=== PATIENT | female | born 1950 | race Caucasian/White ===

== ENCOUNTER 2017-10-14 11:48 | Emergency (ER) | payer OTHER, MEDICAID ==
[~2017-10-14] VITALS: Ht 162.6 cm; Wt 56.7 kg
[2017-10-14 11:54] VITALS: BP 155/75
[2017-10-14] MEDS ORDERED: KETOROLAC TROMETH 30 MG/ML 1ML VIAL IM ONE (12:30)
== END 2017-10-14 12:55 | disposition home or self-care (01) ==
LOC: ER 11:48
DX: S83.92XA Sprain of unspecified site of left knee, initial encounter (principal); S83.91XA Sprain of unspecified site of right knee, initial encounter; I50.9 Heart failure, unspecified; J44.9 Chronic obstructive pulmonary disease, unspecified; I25.2 Old myocardial infarction; Z88.0 Allergy status to penicillin; Z88.6 Allergy status to analgesic agent; X50.1XXA Overexertion from prolonged static or awkward postures, initial encounter; Y93.89 Activity, other specified; Y92.89 Other specified places as the place of occurrence of the external cause; Y99.8 Other external cause status
CPT/HCPCS: 73562; 96372; 99284; J1885

== ENCOUNTER 2022-07-14 17:14 | Emergency (ER) | payer MEDICAID, OTHER ==
[~2022-07-14] VITALS: Ht 165.1 cm; Wt 50.0 kg
[2022-07-14] MEDS ORDERED: ACETAMINOPHEN 650 mg PER 20.3 mL UD PO ONE (18:45)
[2022-07-14 20:30] VITALS: BP 118/70
[2022-07-14] MEDS ORDERED: HYDROcodone-ACET 5/325MG TAB PO ONE (20:45)
[2022-07-14] MEDS ORDERED: ONDANSETRON ODT 4 MG TAB PO ONE (20:45)
[2022-07-14] MEDS ORDERED: TETANUS-DIPTH-ACEL PERTUSSIS 0.5ML SYR Tdap IM ONE (21:00)
== END 2022-07-14 21:33 | disposition home or self-care (01) ==
LOC: ER 17:14 → EDBD 17:14 → ER 21:33
DX: S01.01XA Laceration without foreign body of scalp, initial encounter (principal); J44.9 Chronic obstructive pulmonary disease, unspecified; I50.9 Heart failure, unspecified; I25.2 Old myocardial infarction; M54.50 Low back pain, unspecified; M54.2 Cervicalgia; F17.210 Nicotine dependence, cigarettes, uncomplicated; Z88.8 Allergy status to other drugs, medicaments and biological substances; Y04.2XXA Assault by strike against or bumped into by another person, initial encounter; Y93.89 Activity, other specified; Y92.89 Other specified places as the place of occurrence of the external cause; Y99.8 Other external cause status
CPT/HCPCS: 12001; 70450; 70486; 72125; 72128; 72131; 99284; Q0162

== ENCOUNTER → 2022-07-22 | Emergency (ER) | payer OTHER ==
[~2022-07-22] VITALS: Ht 172.7 cm; Wt 60.0 kg
[2022-07-22 10:34] VITALS: BP 101/67
== END | disposition home or self-care (01) ==
LOC: EDUNIT# 10:20 → EDBD 10:21 → ER 10:21
DX: G89.4 Chronic pain syndrome (principal); I50.9 Heart failure, unspecified; I25.2 Old myocardial infarction; J44.9 Chronic obstructive pulmonary disease, unspecified; F17.210 Nicotine dependence, cigarettes, uncomplicated; Z88.0 Allergy status to penicillin; Z88.8 Allergy status to other drugs, medicaments and biological substances

== ENCOUNTER 2022-08-08 12:56 | Emergency (ER) | payer OTHER ==
[~2022-08-08] VITALS: Ht 162.6 cm; Wt 40.5 kg
[2022-08-08 13:28] LABS: Basophils # (auto) 0 10 ^3/uL (0-0.2); Basophils % (auto) 0.6 % (0.0-2.0); Eosinophils # (auto) 0.4 10 ^3/uL (0-0.8); Eosinophils % (auto) 9.5 % (0.0-7.0); Hematocrit 39.9 % (36.0-46.0); Hemoglobin 13.1 g/dL (12.2-16.2); Lymphocytes # (auto) 1.3 10 ^3/uL (0.4-5.4); Lymphocytes % (auto) 27.4 % (10.0-50.0); Mean Corpuscular Hemoglobin 30.5 pg (28.0-32.0); Mean Corpuscular Hgb Conc. 32.9 g/dL (32.0-36.0); Mean Corpuscular Volume 92.6 fL (80.0-100.0); Monocytes # (auto) 0.5 10 ^3/uL (0-1.3); Monocytes % (auto) 10.4 % (0.0-12.0); Neutrophils # (auto) 2.4 10 ^3/uL (1.6-8.6); Neutrophils % (auto) 52.1 % (37.0-80.0); Red Blood Cells 4.31 10^6/uL (4.0-5.20); Red Cell Distribution Width 14.2 % (11.8-14.3); White Blood Cell 4.7 10^3/uL (4.4-10.8)
[2022-08-08 13:43] VITALS: BP 100/54
[2022-08-08 13:50] LABS: Albumin 3.6 g/dL (3.4-5.0); BUN/Creatinine Ratio 34.9; Bilirubin, Total 0.3 mg/dL (0.2-1.0); Calcium 9.4 mg/dL (8.5-10.1); Magnesium 2.6 mg/dL (1.6-2.6); Potassium 4.9 mmol/L (3.5-5.1); Total Protein 5.8 g/dL (6.4-8.2)
[2022-08-08] MEDS ORDERED: IPRATROPIUM BROM 0.5 MG/2.5ML INH SOL NEB ONE (15:00)
[2022-08-08] MEDS ORDERED: DexAMETHasone 4 MG TAB PO ONE (15:00)
[2022-08-08] MEDS ORDERED: ALBUTEROL SULF 2.5 MG/0.5ML(0.5%) NEB SOLN NEB ONE (15:00)
== END 2022-08-08 15:54 | disposition left against medical advice (07) ==
LOC: ER 12:56
DX: J44.1 Chronic obstructive pulmonary disease with (acute) exacerbation (principal); G89.29 Other chronic pain; M54.9 Dorsalgia, unspecified; F17.210 Nicotine dependence, cigarettes, uncomplicated; I25.2 Old myocardial infarction; I50.9 Heart failure, unspecified
CPT/HCPCS: 36415; 71045; 80053; 83735; 83880; 84484; 85025; 93005; 94640; 99285; J7644

== ENCOUNTER 2023-01-02 09:57 | Emergency (ER) | payer OTHER ==
[~2023-01-02] VITALS: Ht 154.9 cm; Wt 90.0 kg
[2023-01-02 10:07] VITALS: BP 153/77
[2023-01-02 11:32] LABS: Basophils # (auto) 0.1 10 ^3/uL (0-0.2); Basophils % (auto) 1.2 % (0.0-2.0); Eosinophils # (auto) 0.4 10 ^3/uL (0-0.8); Eosinophils % (auto) 4.6 % (0.0-7.0); Hematocrit 44.3 % (36.0-46.0); Hemoglobin 14.9 g/dL (12.2-16.2); Lymphocytes # (auto) 1.6 10 ^3/uL (0.4-5.4); Lymphocytes % (auto) 19.4 % (10.0-50.0); Mean Corpuscular Hemoglobin 30.5 pg (28.0-32.0); Mean Corpuscular Hgb Conc. 33.6 g/dL (32.0-36.0); Mean Corpuscular Volume 90.9 fL (80.0-100.0); Monocytes # (auto) 0.7 10 ^3/uL (0-1.3); Monocytes % (auto) 8.8 % (0.0-12.0); Neutrophils # (auto) 5.6 10 ^3/uL (1.6-8.6); Nucleated Red Blood Cells % 0.1 %; Red Blood Cells 4.87 10^6/uL (4.0-5.20); Red Cell Distribution Width 13.9 % (11.8-14.3); White Blood Cell 8.4 10^3/uL (4.4-10.8)
[2023-01-02 11:59] LABS: Albumin 3.9 g/dL (3.4-5.0); Anion Gap 2 (5-15); Blood Alcohol < 3.0 mg/dL (0-5); Blood Urea Nitrogen 11 mg/dL (7-18); Calcium 9.1 mg/dL (8.5-10.1); Carbon Dioxide 28 mmol/L (21-32); Chloride 107 mmol/L (98-107); Glucose 102 mg/dL (74-106); Magnesium 2.6 mg/dL (1.6-2.6); Potassium 4.3 mmol/L (3.5-5.1); Sodium 137 mmol/L (136-145)
[2023-01-02 12:02] LABS: Alanine Aminotransferase 14 U/L (13-56); Alkaline Phosphatase 87 U/L (45-117); Aspartate Aminotransferase 12 U/L (15-37); BUN/Creatinine Ratio 19.6 (10.0-20.0); Bilirubin, Total 0.5 mg/dL (0.2-1.0); GFR African American 136 mL/min; GFR Non-African American 113 mL/min; Total Protein 6.9 g/dL (6.4-8.2)
[2023-01-02 13:34] LABS: Urine Bacteria NONE SEEN /hpf (None Seen); Urine Blood Negative /uL (Negative); Urine Specific Gravity 1.005 (1.001-1.035); Urine WBC 3 /hpf (0 - 5)
[2023-01-02 13:42] LABS: Alcohol, Urine < 3.0 mg/dL (0-10); Barbiturate Scree,Urine NEGATIVE (NEGATIVE); Benzodiazephine Screen, Urine NEGATIVE (NEGATIVE); Cannabinoid Screen, Urine POSITIVE (NEGATIVE); Cocaine Screen, Urine NEGATIVE (NEGATIVE)
[2023-01-02] MEDS ORDERED: LORazepam 0.5 MG TAB PO ONE (13:45)
[2023-01-02 13:51] LABS: Amphetamine Screen, Urine NEGATIVE (NEGATIVE); Opiate Scree,Urine NEGATIVE (NEGATIVE); Phencyclidine Screen, Urine NEGATIVE (NEGATIVE)
== END 2023-01-02 17:06 | disposition home or self-care (01) ==
LOC: EDBD 09:57 → ER 09:57
DX: F41.9 Anxiety disorder, unspecified (principal); R51.9 Headache, unspecified; R07.89 Other chest pain; I50.9 Heart failure, unspecified; I25.2 Old myocardial infarction; J44.9 Chronic obstructive pulmonary disease, unspecified; F17.210 Nicotine dependence, cigarettes, uncomplicated; Z76.0 Encounter for issue of repeat prescription; Z88.0 Allergy status to penicillin; Z88.8 Allergy status to other drugs, medicaments and biological substances
CPT/HCPCS: 36415; 70450; 71045; 80053; 80307; 80320; 81001; 82140; 83605; 83735; 83880; 83930; 84484; 85025; 87040

== ENCOUNTER 2023-01-14 12:43 | Emergency (ER) | payer OTHER ==
[~2023-01-14] VITALS: Ht 165.1 cm; Wt 37.0 kg
[2023-01-14 13:12] VITALS: BP 131/88
== END 2023-01-14 15:16 | disposition left against medical advice (07) ==
LOC: EDBD 12:43 → ER 12:43
DX: R10.84 Generalized abdominal pain (principal); Z53.21 Procedure and treatment not carried out due to patient leaving prior to being seen by health care provider

== ENCOUNTER 2023-03-26 00:12 | Emergency (ER) | payer OTHER ==
[~2023-03-26] VITALS: Ht 162.6 cm; Wt 36.8 kg
[2023-03-26 03:10] LABS: Salicylate 5.2 mg/dL (2.8-20.0)
[2023-03-26 03:12] LABS: Acetaminophen < 2.0 ug/mL (10-30)
[2023-03-26 03:23] LABS: Basophils # (auto) 0.1 10 ^3/uL (0-0.2); Basophils % (auto) 1.1 % (0.0-2.0); Eosinophils # (auto) 0.3 10 ^3/uL (0-0.8); Hemoglobin 15.1 g/dL (12.2-16.2); Lymphocytes # (auto) 1.5 10 ^3/uL (0.4-5.4); Lymphocytes % (auto) 17.5 % (10.0-50.0); Mean Corpuscular Hemoglobin 30.7 pg (28.0-32.0); Mean Corpuscular Hgb Conc. 33.4 g/dL (32.0-36.0); Mean Corpuscular Volume 91.9 fL (80.0-100.0); Monocytes # (auto) 0.5 10 ^3/uL (0-1.3); Monocytes % (auto) 5.9 % (0.0-12.0); Neutrophils # (auto) 6.4 10 ^3/uL (1.6-8.6); Neutrophils % (auto) 72.5 % (37.0-80.0); Red Cell Distribution Width 13.2 % (11.8-14.3); White Blood Cell 8.9 10^3/uL (4.4-10.8)
[2023-03-26 03:27] LABS: Albumin 3.8 g/dL (3.4-5.0); BUN/Creatinine Ratio 20.5 (10.0-20.0); Calcium 8.9 mg/dL (8.5-10.1); Potassium 3.7 mmol/L (3.5-5.1)
[2023-03-26 03:30] LABS: Bilirubin, Total 0.5 mg/dL (0.2-1.0); Total Protein 6.6 g/dL (6.4-8.2)
[2023-03-26] MEDS ORDERED: HALOPERIDOL LACTATE 5 MG/ML INJ VIAL IM ONE (07:00)
[2023-03-26 07:35] VITALS: BP 116/70
[2023-03-26 07:48] LABS: Urine Bacteria FEW /hpf (None Seen); Urine Blood TRACE /uL (Negative); Urine Mucus MODERATE (None Seen); Urine Specific Gravity 1.023 (1.001-1.035); Urine WBC 56 /hpf (0 - 5)
[2023-03-26 08:19] LABS: Alcohol, Urine < 3.0 mg/dL (0-10); Amphetamine Screen, Urine NEGATIVE (NEGATIVE); Barbiturate Scree,Urine NEGATIVE (NEGATIVE); Benzodiazephine Screen, Urine NEGATIVE (NEGATIVE); Cannabinoid Screen, Urine NEGATIVE (NEGATIVE); Cocaine Screen, Urine NEGATIVE (NEGATIVE); Opiate Scree,Urine NEGATIVE (NEGATIVE); Phencyclidine Screen, Urine NEGATIVE (NEGATIVE)
== END 2023-03-26 08:36 | disposition left against medical advice (07) ==
LOC: ER 00:12 → EDBD 00:12 → ER 08:36
DX: R51.9 Headache, unspecified (principal); M54.2 Cervicalgia; R10.9 Unspecified abdominal pain; R11.2 Nausea with vomiting, unspecified; Z53.21 Procedure and treatment not carried out due to patient leaving prior to being seen by health care provider
CPT/HCPCS: 36415; 70450; 71250; 72125; 74176; 80053; 80307; 80329; 81001; 84484; 85025; 93005; 99281; J1630

== ENCOUNTER 2024-10-05 04:28 | Inpatient (IN) | payer OTHER ==
[~2024-10-05] VITALS: Ht 162.6 cm; Wt 39.0 kg
[2024-10-05 04:56] VITALS: PULSE 87; RESP 12; O2SAT 96
[2024-10-05 05:57] LABS: Basophils # (auto) 0 10 ^3/uL (0-0.2); Basophils % (auto) 0.7 % (0.0-2.0); Eosinophils # (auto) 0.3 10 ^3/uL (0-0.8); Hematocrit 41.4 % (36.0-46.0); Hemoglobin 13.9 g/dL (12.2-16.2); Lymphocytes # (auto) 1.5 10 ^3/uL (0.4-5.4); Lymphocytes % (auto) 29.2 % (10.0-50.0); Mean Corpuscular Hemoglobin 32.1 pg (28.0-32.0); Mean Corpuscular Hgb Conc. 33.5 g/dL (32.0-36.0); Mean Corpuscular Volume 95.8 fL (80.0-100.0); Monocytes # (auto) 0.4 10 ^3/uL (0-1.3); Monocytes % (auto) 7.9 % (0.0-12.0); Neutrophils # (auto) 2.9 10 ^3/uL (1.6-8.6); Neutrophils % (auto) 57.2 % (37.0-80.0); Nucleated Red Blood Cells % 0.1 %; Platelet Count (auto) 202 10^3/uL (140-450); Red Blood Cells 4.32 10^6/uL (4.0-5.20); Red Cell Distribution Width 13.7 % (11.8-14.3)
[2024-10-05 06:13] LABS: Alanine Aminotransferase 12 U/L (7-40); Albumin 3.9 g/dL (3.2-4.8); Anion Gap 9 (5-15); Aspartate Aminotransferase 14 U/L (13-40); Carbon Dioxide 22 mmol/L (20-31); Glucose 85 mg/dL (74-106); Potassium 3.9 mmol/L (3.5-5.1); Sodium 143 mmol/L (136-145)
[2024-10-05 06:14] LABS: Bilirubin, Total 0.4 mg/dL (0.2-1.0)
[2024-10-05 06:16] LABS: Alkaline Phosphatase 128 U/L (46-116); Blood Urea Nitrogen 9 mg/dL (9-23); Chloride 112 mmol/L (98-107); Total Protein 5.6 g/dL (5.7-8.2)
--- NOTE | 2024-10-05 07:05 | ECG ---
[facility] Test Date: 2024-10-05 Test Time: 05:46:07 Pat Name: DELVIN FRAUSTO Department: ER Room: 0272T Gender: F Collect On Delivery Clerk: : 1950 Requested By: MICHI AYALA Order Number: [id number] Reading MD: Abbe Pablo Measurements Intervals [place] Rate: 83 P: 84 HI: 170 QRS: 74 QRSD: 84 T: 78 QT: 379 QTc: 446 Interpretive Statements Sinus rhythm ST elevation, consider inferior injury Electronically Signed On 10-13-2024 14:41:13 PST by Abbe Pablo Please click the below link to view image of tracing.
[2024-10-05 07:30] VITALS: PULSE 97; RESP 16; O2SAT 97
--- NOTE | 2024-10-05 07:36 | DVH ---
EXAM: CT Head Without Intravenous Contrast CLINICAL INDICATION: SYNCOPE TECHNIQUE: Axial computed tomography images of the head/brain without intravenous contrast. This CT exam was performed using one or more of the following dose reduction techniques: automated exposure control, adjustment of the mA and/or kV according to patient size, and/or use of iterative reconstru ction technique. RADIATION DOSE: CTDlvol= CTDIvol mGy, DLP= 859.45 mGy-cm COMPARISON: CT HEAD WITHOUT CONTRAST on DOS: 03/25/23, CT CERVICAL WITHOUT CONTRAST on DOS: 03/25/23, CT HEAD WITHOUT CONTRAST on DOS: 01/02/23, CERVICAL WITHOUT CONTRAST on DOS: 07/14/22, HEAD WITHOUT CONT RAST on DOS: 07/14/22 FINDINGS: BRAIN AND EXTRA-AXIAL SPACES: The cerebral and cerebellar sulci are prominent consistent with brain atrophy. Small vessel. No acute intracranial hemorrhage, midline shift or mass effect. BONES/JOINTS: Unremarkable. No acute fracture. SOFT TISSUES: Unremarkable. SINUSES: Unremarkable as visualized. No acute sinusitis. MASTOID AIR CELLS: Unremarkable as visualized. No mastoid effusion. OTHER FINDINGS: . . . IMPRESSION: 1. No acute intracranial hemorrhage, midline shift or mass effect. 2. Generalized brain atrophy. 3. If symptoms persist, further evaluation with MRI is recommended.
--- NOTE | 2024-10-05 07:52 | DVH ---
CHEST RADIOGRAPH Indication: SOB Technique: Single frontal view of the chest was obtained Comparison: XY CHEST PORTABLE on DOS: 01/02/23, CHEST PORTABLE on DOS: 08/08/22, CXRP on DOS: 08/08/22 IMPRESSION: Heart appears normal in size. The lungs appear clear without focal airspace opacity, effusion, or pn eumothorax
--- NOTE | 2024-10-05 08:02 | ED.PDOC ---
History of Present Illness HPI Comments 74 y/o F, with a with a Hx of CAD, CA, CHF, COPD, NC, and tobacco use, is BIBA for c/o shortness and breath and nausea, today, following recent syncopal episode w/fall injury, yesterday. Per EMS report, patient endorses on having an episode of palpitations, yesterday, evening, prior to then losing consciousness and suffering a fall w/o head or additional injuries. At time of assessment, patient comments on being compliant with her medications and reports no recent prior injuries, sick contact, travel, strenuous activities, stressors, or additional relevant or pertinent Hx. She denies having any chest pain, dizziness, headache or additional injuries, fever, chills, or other associated symptoms or modifiers at this time. Chief Complaint: General Weakness Time Seen by MD: 06:45 Primary Care Provider: NONE Reviewed Notes: Nurses Notes, Certified Orthotist Notes, Medications, Allergies Allergies: Coded Allergies: Barbiturates (Verified Allergy, Unknown, 10/14/17) Penicillins (Verified Allergy, Unknown, 01/02/23) Information Source: Patient, Emergency Med Personnel Mode of Arrival: EMS Severity: Moderate Timing: Days Duration: Since onset Prehospital treatment: 12 Lead EKG, Legal File Clerk Past Medical History PAST MEDICAL HISTORY: CAD, Cancer, CHF, COPD, NC Surgical History: Denies all surgeries FISCAL SERVICES DIRECTOR History: Denies all FISCAL SERVICES DIRECTOR Hx Family History Family History: Reviewed,noncontributory to illness Social History Smoker: Cigarettes Alcohol: Occasionally Drugs: Denies Drug Use Lives In: Home Respiratory: reports: shortness of breath Cardiovascular: reports: syncope Gastrointestinal: reports: nausea All Other Systems: Reviewed and Negative (negative unless otherwise stated above or in HPI) Physical Exam General Appearance: No Apparent Distress, Thin HEENT: Normal ENT Inspection, Pharynx Normal, TMs Normal Neck: Full Range of Motion, Non-Tender, Normal, Normal Inspection Respiratory: Chest Non-Tender, Lungs Clear, No Accessory Muscle Use, No Respir atory Distress, Normal Breath Sounds Cardiovascular: No Edema, No JVD, No Murmur, No Gallop, Normal Peripheral Pulses, Regular Rate/Rhythm Breast Exam: Deferred Gastrointestinal: No Organomegaly, Non Tender, No Pulsatile Mass, Normal Bowel Sounds, Soft Genitalia: Deferred Pelvic: Deferred Rectal: Deferred Extremities: No calf tenderness, Normal capillary refill, Normal inspection, Normal range of motion, Non-tender, No pedal edema Musculoskeletal : Apperance: Normal Neurologic: Alert, director of sustainable design II-XII nml as Tested, No Motor Deficits, Normal Affect, Normal Mood, No Sensory Deficits Cerebellar Function: Normal Reflexes: Normal Skin: Dry, Normal Color, Warm Lymphatic: No Adenopathy Was a procedure done? Was a procedure done?: No EKG EKG : Pulse Rate (adult): 83 [place]: Normal Cardiac Rhythm: NSR Block: None Hypertrophy: None ST: Normal Differential Dx Considerations may include: dehydration, electrolyte imbalance, arrhythmia, closed head injury, viral syndrome, COPD exacerbation, CHF exacerbation, gastritis, gastroenteritis, spoiled food X-Ray, Labs, Meds, VS Vital Signs Date Time Temp Pulse Resp B/P (MAP) Pulse Ox O2 Delivery O2 Flow Rate FiO2 10/05/24 09:00 93 17 112/58 (76) 96 10/05/24 09:00 81 10/05/24 09:00 90 10/05/24 08:02 83 10/05/24 07:30 97 16 97 Room Air* 0 21 10/05/24 07:30 96.8 97 16 108/62 (77) 97 96.8 10/05/24 07:00 75 14 108/62 (77) 96 10/05/24 05:46 83 10/05/24 04:56 97.5 87 12 108/78 (88) 96 97.5 10/05/24 04:56 87 12 96 Room Air* 0 21 10/05/24 04:32 97.9 96 16 117/77 (90) 97 Lab Test 10/05/24 10:24 10/05/24 08:25 10/05/24 07:25 10/05/24 05:29 Range/Units Troponin I High Sensitivity 3 L 4 4 </=34 ng/L White Blood Count 5.0 4.4-10.8 10^3/uL Red Blood Count 4.32 4.0-5.20 10^6/uL Hemoglobin 13.9 12.2-16.2 g/dL Hematocrit 41.4 36.0-46.0 % Mean Corpuscular Volume 95.8 80.0-100.0 fL Mean Corpuscular Hemoglobin 32.1 H 28.0-32.0 pg Mean Corpuscular Hemoglobin Concent 33.5 32.0-36.0 g/dL Red Cell Distribution Width 13.7 11.8-14.3 % Platelet Count 202 140-450 10^3/uL Mean Platelet Volume 6.9 6.9-10.8 fL Neutrophils (%) (Auto) 57.2 37.0-80.0 % Lymphocytes (%) (Auto) 29.2 10.0-50.0 % Monocytes (%) (Auto) 7.9 0.0-12.0 % Eosinophils (%) (Auto) 5.0 0.0-7.0 % Basophils (%) (Auto) 0.7 0.0-2.0 % Neutrophils # (Auto) 2.9 1.6-8.6 10 ^3/uL Lymphocytes # (Auto) 1.5 0.4-5.4 10 ^3/uL Monocytes # (Auto) 0.4 0-1.3 10 ^3/uL Eosinophils # (Auto) 0.3 0-0.8 10 ^3/uL Basophils # (Auto) 0 0-0.2 10 ^3/uL Nucleated Red Blood Cells 0.1 % Sodium Level 143 136-145 mmol/L Potassium Level 3.9 3.5-5.1 mmol/L Chloride Level 112 H 98-107 mmol/L Carbon Dioxide Level 22 20-31 mmol/L Anion Gap 9 5-15 Blood Urea Nitrogen 9 9-23 mg/dL Creatinine 0.50 L 0.550-1.02 mg/dL Glomerular Filtration Rate Calc 98 >90 mL/min BUN/Creatinine Ratio 18.0 10.0-20.0 Serum Glucose 85 74-106 mg/dL Calcium Level 9.0 8.7-10.4 mg/dL Total Bilirubin 0.4 0.2-1.0 mg/dL Aspartate Amino Transferase (AST) 14 13-40 U/L Alanine Aminotransferase (ALT) 12 7-40 U/L Alkaline Phosphatase 128 H 46-116 U/L Total Protein 5.6 L 5.7-8.2 g/dL Albumin 3.9 3.2-4.8 g/dL Current Medications Medications (Trade) Dose Ordered Sig/Jose C Route Start Time Stop Time Status Last Admin Ondansetron HCl (Zofran) 4 mg ONCE ONCE IV 10/05/24 08:00 10/05/24 08:01 DC 10/05/24 08:[address] [address] Ph: [phone] DIAGNOSTIC IMAGING Diagnostic Imaging Report : [id number] Signed PATIENT: DELVIN FRAUSTO ACCT: [id number] UNIT: [id number] : 1950 LOC: ER ROOM / BED: / AGE / SEX: 74 / F ADM STATUS: REG ER SERVICE 4 ORDERING PHYSICIAN: MICHI AYALA MD PROCEDURE(s): HWOCT - HEAD WITHOUT CONTRAST REASON: SYNCOPE ORDER NUMBER(s): [id number], ACCESSION NUMBER(s): [id number] EXAM: CT Head Without Intravenous Contrast CLINICAL INDICATION: SYNCOPE TECHNIQUE: Axial computed tomography images of the head/brain without intravenous contrast. This CT exam was performed using one or more of the foll owing dose reduction techniques: automated exposure control, adjustment of the mA and/or kV according to patient size, and/or use of iterative reconstruction technique. RADIATION DOSE: CTDlvol= CTDIvol mGy, DLP= 859.45 mGy-cm COMPARISON: CT HEAD WITHOUT CONTRAST on DOS: 03/25/23, CT CERVICAL WITHOUT CONTRAST on DOS: 03/25/23, CT HEAD WITHOUT CONTRAST on DOS: 01/02/23, CERVICAL WITHOUT CONTRAST on DOS: 07/14/22, HEAD WITHOUT CONTRAST on DOS: 07/14/22 FINDINGS: BRAIN AND EXTRA-AXIAL SPACES: The cerebral and cerebellar sulci are prominent consistent with brain atrophy. Small vessel. No acute intracranial hemorrhage, midline shift or mass effect. BONES/JOINTS: Unremarkable. No acute fracture. SOFT TISSUES: Unremarkable. SINUSES: Unremarkable as visualized. No acute sinusitis. MASTOID AIR CELLS: Unremarkable as visualized. No mastoid effusion. OTHER FINDINGS: . . . IMPRESSION: 1. No acute intracranial hemorrhage, midline shift or mass effect. 2. Generalized brain atrophy. 3. If symptoms persist, further evaluation with MRI is recommended. ATED BY: BARBARA BRADSHAW MD DICTATED DATE/TIME: 10/05/24732 SIGNED BY: BARBARA BRADSHAW MD SIGNED DATE/TIME: 10/05/24732 CC: [address], [place] - [address] Ph: [phone] DIAGNOSTIC IMAGING Diagnostic Imaging Report : [id number] Signed PATIENT: DELVIN FRAUSTO ACCT: [id number] UNIT: [id number] : 1950 LOC: ER ROOM / BED: / AGE / SEX: 74 / F ADM STATUS: REG ER SERVICE 0705 ORDERING PHYSICIAN: MICHI AYALA MD PROCEDURE(s): CXRP - CHEST PORTABLE REASON: SOB ORDER NUMBER(s): [id number], ACCESSION NUMBER(s): [id number] CHEST RADIOGRAPH Indication: SOB Technique: Single frontal view of the chest was obtained Comparison: XY CHEST PORTABLE on DOS: 01/02/23, CHEST PORTABLE on DOS: 08/08/22, CXRP on DOS: 08/08/22 IMPRESSION: Heart appears normal in size. The lungs appear clear without focal airspace opacity, effusion, or pneumothorax ATED BY: BRAULIO ALEXANDRA MD DICTATED DATE/TIME: 10/05/24751 SIGNED BY: BRAULIO ALEXANDRA MD SIGNED DATE/TIME: 10/05/24751 CC: Time of 1ST Reevaluation: 07:15 Reevaluation 1ST: Unchanged Patient Education/Counseling: Diagnosis, Treatment Family Education/Counseling: No Family Present Departure 1 Departure Time of Disposition: 09:00 Impression: Primary Impression: Palpitations Additional Impressions: Syncope Chest pain Disposition: ADMITTED INPATIENT Admit to: Tele Condition: Guarded Critical Care Note Critical Care Time?: Yes (45 min-critical care time only) Critical care comment: CRITICAL CARE TIME: 45 minutes Treatments/Evaluations: Close monitoring and treatment of unstable vital signs, cardiorespiratory, and neurologic status, while maintaining tight balance of fluid, respiratory, and cardiac interventions. This time includes discussing the case with the patient and the patients family. This time does not include all procedures stated elsewhere in this record. This time also includes reviewing old records, labs and radiological studies. This time includes examining and re-examining the patient. Additionally, this time also includes arranging care with admitting and consulting physicians. Stability Stability form required: No Heart Score Heart Score: Heart Score Response (Comments) Value History Moderate Suspicious 1 EKG Normal 0 Age >65 2 Risk Factors >3 or Hx ASHD 2 Troponin Normal limit 0 Total 5 I personally scribed for MICHI AYALA MD [email or web address] on 10/05/24 at 08:02. Electronically submitted by Song Aguilar ([email or web address]). I personally scribed for MICHI AYALA MD ([email or web address]) on 10/05/24 at 09:14. Electronically submitted by Song Aguilar ([email or web address]). MICHI AYALA MD Oct 05, 2024 08:02
[2024-10-05] MEDS: ONDANSETRON HCL 4 MG/2 ML VIAL IV ONE (08:05)
[2024-10-05] MEDS ORDERED: NITROGLYCERIN 0.4 MG SL TAB SL PRN ×2 (11:15→23:45)
[2024-10-05] MEDS ORDERED: MORPHINE SULFATE INJ 2 MG/ml SYRG IV PRN ×2 (11:15→23:45)
[2024-10-05] MEDS ORDERED: ZOLPIDEM TARTRATE 5 MG TAB PO PRN ×2 (11:30→23:45)
--- NOTE | 2024-10-05 11:31 | DVHHP2 ---
History of Present Illness Reason for Visit: Fall History of Present Illness 74 year old female h/o COPD, CHF, CAD, MS came for a fall yesterday, chest pain, palpitations, fever and chills and nausea x 2 days. No vomiting c/o mid back pain c/o urinary incontinence Cardiovascular: CAD, CHF, MS Pulmonary: COPD Review of Systems Constitutional: Yes: Fever, Chills, Weakness Respiratory: Shortness of breath, SOB with excertion Gastrointestinal: Nausea Neurological: Weakness Allergies: Coded Allergies: Barbiturates (Verified Allergy, Unknown, 10/14/17) Penicillins (Verified Allergy, Unknown, 01/02/23) Medications Current Medications Medications Dose Ordered Sig/Jose C Route Start Time Stop Time Status Last Admin Dose Admin Nitroglycerin 0.4 mg Q5MINP PRN SL 10/05/24 11:15 Morphine Sulfate 2 mg Q30M PRN IV 10/05/24 11:15 Acetaminophen 650 mg Q6HP PRN PO 10/05/24 11:30 UNV Exam Vital Signs Vital Signs Date Time Temp Pulse Resp B/P (MAP) Pulse Ox O2 Delivery O2 Flow Rate FiO2 10/05/24 11:18 98.7 97 22 116/64 (81) 94 98.7 10/05/24 07:30 Room Air* 0 21 General Appearance: Alert, Oriented X3, Cooperative, No acute distress Respiratory: Clear to auscultation, Normal air movement Cardiovascular: Normal S1, Normal S2, No murmurs, Other (tachycardic) Abdominal: Normal bowel sounds, Soft, No tenderness Extremities: No edema Labs/Xrays Labs Test 10/05/24 10:24 10/05/24 05:29 Range/Units Troponin I High Sensitivity 3 L </=34 ng/L White Blood Count 5.0 4.4-10.8 10^3/uL Red Blood Count 4.32 4.0-5.20 10^6/uL Hemoglobin 13.9 12.2-16.2 g/dL Hematocrit 41.4 36.0-46.0 % Mean Corpuscular Volume 95.8 80.0-100.0 fL Mean Corpuscular Hemoglobin 32.1 H 28.0-32.0 pg Mean Corpuscular Hemoglobin Concent 33.5 32.0-36.0 g/dL Red Cell Distribution Width 13.7 11.8-14.3 % Platelet Count 202 140-450 10^3/uL Mean Platelet Volume 6.9 6.9-10.8 fL Neutrophils (%) (Auto) 57.2 37.0-80.0 % Lymphocytes (%) (Auto) 29.2 10.0-50.0 % Monocytes (%) (Auto) 7.9 0.0-12.0 % Eosinophils (%) (Auto) 5.0 0.0-7.0 % Basophils (%) (Auto) 0.7 0.0-2.0 % Neutrophils # (Auto) 2.9 1.6-8.6 10 ^3/uL Lymphocytes # (Auto) 1.5 0.4-5.4 10 ^3/uL Monocytes # (Auto) 0.4 0-1.3 10 ^3/uL Eosinophils # (Auto) 0.3 0-0.8 10 ^3/uL Basophils # (Auto) 0 0-0.2 10 ^3/uL Nucleated Red Blood Cells 0.1 % Sodium Level 143 136-145 mmol/L Potassium Level 3.9 3.5-5.1 mmol/L Chloride Level 112 H 98-107 mmol/L Carbon Dioxide Level 22 20-31 mmol/L Anion Gap 9 5-15 Blood Urea Nitrogen 9 9-23 mg/dL Creatinine 0.50 L 0.550-1.02 mg/dL Glomerular Filtration Rate Calc 98 >90 mL/min BUN/Creatinine Ratio 18.0 10.0-20.0 Serum Glucose 85 74-106 mg/dL Calcium Level 9.0 8.7-10.4 mg/dL Total Bilirubin 0.4 0.2-1.0 mg/dL Aspartate Amino Transferase (AST) 14 13-40 U/L Alanine Aminotransferase (ALT) 12 7-40 U/L Alkaline Phosphatase 128 H 46-116 U/L Total Protein 5.6 L 5.7-8.2 g/dL Albumin 3.9 3.2-4.8 g/dL Assessment/Plan Assessment/Plan Syncope Tachycardia Chest pain Fever and chills h/o CHF COPD s/p Fall Back pain Urinary incontinence h/o CAD/MS Weakness Mild protein malnutrition Anxiety PLAN: IV fluids UA, rule out UTI CT L&T spines Echo Carotid doppler CT head: nl CXR: Neg Trop: Neg [facility] Physical therapy Xanax prn Full code Plan discussed with: Patient My Orders Orders - ANA KNAPP MD Procedure Category Date Status Time Admit ADMIT 10/05/24 Transmitted 11:15 Nitroglycerin [facility] 10/05/24 In Process Sublingual (Ntrostat 11:15 Morphine Sulfate [facility] 10/05/24 In Process Injection 11:15 Stat Ekg For Chest [facility] 10/05/24 In Process Pain 11:15 Notify Of Changes [facility] 10/05/24 In Process From Base 11:15 Mental Health Consultant For JERMAINE 10/05/24 In Process 24 Hours 11:15 Emergency Dysrhythmia [facility] 10/05/24 In Process Protocol 11:15 Rhythm Strips Once [facility] 10/05/24 In Process Every Shift 11:15 Oxygen By Nasal RT 10/05/24 Transmitted Cannula 11:15 Insert [place]h Catheter [facility] 10/05/24 In Process 11:16 Cardiac DIET 10/05/24 Transmitted Diet-2gna,Lofat,Lochol Lunch Echo 2d Mode Cardiac US 10/05/24 Logged DOP 11:16 Carotid Duplx W Color US 10/05/24 Logged DOP 11:16 Sodium Chloride 0.9% PHA 10/05/24 Logged 11:30 Acetaminophen Tablet PHA 10/05/24 Logged (Tylenol Tablet) 11:[address] 10/05/24 Logged Contras 11:19 Ls Spine Wo Contrast CT 10/05/24 Logged 11:19 Date of Service: Oct 05, 2024 Billing Provider: ANA KNAPP MD Common Visit Codes: NOT BILLABLE ANA KNAPP MD Oct 05, 2024 11:31
--- NOTE | 2024-10-05 11:51 | DVH ---
Carotid Duplex Clinical History: Syncope Comparison: None Technique: Duplex doppler evaluation of the extracranial carotid and vertebral arteries including color doppler and spectral/pulsed waveform analysis was performed. Findings: No elevated peak flow velocities. Antegrade flow both vertebral arteries Unremarkable real time imaging impression: 1. No hemodynamically significant stenosis noted in the right carotid system. 2. No hemodynamically significant stenosis noted in the left carotid system. Reference: Radiology 2003; 229:340-346 Normal ICA PSV is <125 cm/sec and no plaque or intimal thickening is visible sonographically Additional criteria include ICA/CCA PSV ratio <2.0 and ICA EDV <40 cm/sec <50% ICA stenosis ICA PSV is <125 cm/sec and plaque or intimal thickening is visible sonographically Additional criteria include ICA/CCA PSV ratio <2.0 and ICA EDV <40 cm/sec 50-69% ICA stenosis ICA PSV is 125-230 cm/sec and plaque is visible sonographically Additional criteria include ICA/CCA PSV ratio of 2.0-4.0 and ICA EDV of 40-100 cm/sec 70% ICA stenosis but less than near occlusion ICA PSV is >230 cm/sec and visible plaque and luminal narrowing are seen at smith-scale and color dopp ler ultrasound (the higher the doppler parameters lie above the threshold of 230 cm/sec, the greater the likelihood of severe disease) Additional criteria include ICA/CCA PSV ratio >4 and ICA EDV >100 cm/sec
--- NOTE | 2024-10-05 12:21 | DVH ---
EXAM: CT LS SPINE WO CONTRAST HISTORY: fall COMPARISON: LS2CT on DOS: 07/14/22 CTDIvol 7 mGy, DLP 213 mGy*cm. TECHNIQUE: Multiple axial CT images of the spine were obtained using bone algorithm. Axial and coron al reformatting was done. Bone and soft tissue windows were reviewed. FINDINGS: Compression fracture the superior vertebral endplate of L3 with 20% loss of height most likely old. M oderately severe central spinal canal stenosis at the L3-L4 level. Severe central spinal canal stenos is at the L4-L5 level. 6 mm broad based annular disc bulge extending into both neuroforamen, right gr eater than left at the L4-5 level. Chronic discogenic changes seen at the L4-L5 level. No metastatic disease. Severe vascular calcification of the aorta. Moderately severe multi level degenerative disc disease. Impression: Compression fracture superior vertebral endplate of L3, most likely old. Severe central spinal canal stenosis at the L4-L5 level. Advanced multi level degenerative disc disease.
[2024-10-05] MEDS: SODIUM CHLORIDE 0.9% 1,000 ML IV ONE ×2 (12:25→23:50)
--- NOTE | 2024-10-05 12:33 | DVH ---
Procedure: CT THORACIC SPINE WO RICARDO 10/05/2024 12:00 PM Indication: fall Comparison Study: None. Technique: Axial images were obtained and reformatted in coronal and sagittal planes. All CT scans at this medical facility are performed using dose modulation techniques as appropriate t o a performed exam including the following: Automated exposure control was utilized; adjustment of th e MA and/or KV according to patient size; and use of iterative reconstruction technique. CT Dose: CTDI volume is 7.08 mGy. Dose-length product is 272.7 mGy*cm FINDINGS: Bones: Depression of the inferior endplate of T8 with resultant approximately 30% loss of height cent rally noted. There is no retropulsion. Disc space maintained. Mild discogenic endplate changes are seen at several levels. Soft tissues: Paraspinal and prevertebral soft tissues are unremarkable. Atherosclerotic calcificati on of the thoracic aorta noted. Centrilobular emphysema. IMPRESSION: 1. Mild compression fracture of T8 with approximately 30% loss of height centrally without retropulsi on. Central canal is patent.
[2024-10-05 15:52] VITALS: PULSE 101; RESP 20; O2SAT 94
[2024-10-05 15:53] LABS: Urine Bacteria None Seen /hpf (None Seen)
[2024-10-05 16:11] LABS: Urine Blood Negative /uL (Negative); Urine Clarity Clear (Clear); Urine Color Light-Yellow (Yellow); Urine Protein, UAD Negative (Negative); Urine Squamous Epithelial Cell None Seen /hpf (<5); Urine Urobilinogen Normal (Negative); Urine WBC 2 /hpf (0 - 5); Urine pH 6.5 (5.0-9.0)
[2024-10-05] MEDS: ALPRAZolam 0.25 MG TAB PO PRN (16:22)
[2024-10-05] MEDS: ACETAMINOPHEN 325 MG TAB PO PRN (16:22)
[2024-10-05 18:30] VITALS: BP 149/83; PULSE 91; RESP 20; TEMP 98.1; O2SAT 95
[2024-10-05 20:00] VITALS: PULSE 91; PULSE 92; RESP 20; O2SAT 96
[2024-10-05 21:00] VITALS: BP 145/80; PULSE 91; RESP 20; TEMP 98; O2SAT 96
--- NOTE | 2024-10-05 22:14 | DVHSR ---
APPROVED REPORT EXAM: LIMITED Two-dimensional and M-mode echocardiogram with Doppler and color Doppler. Blood Pressure: 116/64 mmHg INDICATION CHF RISK FACTORS Height: 5'4", Weight: 88 DIMENSIONS LVDd3.7 (3.8-5.7cm)LA (2D) (1.9-4.0cm)Aortic Root (2.0-3.7cm) LVDs2.6 (2.5-4.0cm)LA (MM) (1.9-4.0cm)Aortic Cusp Exc (1.5-2.0cm) EF (%) 57.0 (55-70%)Rt. Atrium (1.9-4.0cm)Asc. Aorta cm IVSd0.7 (0.7-1.1cm)RV (D) (1.8-2.4cm) PWd1.1 (0.7-1.1cm) Mitral Valve MitralMitral Stenosis E/A ratio0.02D MVAcm2 Pulmonic Valve V21.25m/s Other Information Quality : Technically LimitedRhythm : Technically limited study due to body habitus. Conclusion LV EJECTION FRACTION OF 57% NORMAL VALVES DYSKINESIS OF IVS NO EFFUSION SLIGHTLY DILATED RV
[2024-10-05] MEDS ORDERED: ALPRAZolam 0.25 MG TAB PO PRN (23:45)
[2024-10-05] MEDS ORDERED: ONDANSETRON HCL 4 MG/2 ML VIAL IV ONE (23:45)
[2024-10-06] VITALS (7 sets, daily range): BP systolic 106–166; BP diastolic 69–93; PULSE 65–95; RESP 14–20; TEMP 97.8–98.3; O2SAT 95–99
[2024-10-06] MEDS: ACETAMINOPHEN 325 MG TAB PO PRN (09:29)
--- NOTE | 2024-10-06 11:16 | DVHDS2 ---
Discharge Summary Date of Admission Oct 05, 2024 at 11:15 Date of Discharge: Oct 06, 2024 Labs/Diagnostic Data: Laboratory Results Test 10/05/24 15:40 10/05/24 10:24 10/05/24 05:29 Urine Color Light-yellow (Yellow) Urine Clarity Clear (Clear) Urine pH 6.5 (5.0-9.0) Urine Specific [place] 1.010 (1.001-1.035) Urine Protein Negative (Negative) Urine Ketones Negative (Negative) Urine Blood Negative /uL (Negative) Urine Nitrite Negative (Negative) Urine Bilirubin Negative (Negative) Urine Urobilinogen Normal mg/dL (Negative) Urine Leukocyte Esterase Negative /uL (Negative) Urine RBC 1 /hpf (0 - 4) Urine WBC 2 /hpf (0 - 5) Urine Squamous Epithelial Cells None seen /hpf (<5) Urine Bacteria None seen /hpf (None Seen) Urine Glucose Normal mg/dL (Normal) Troponin I High Sensitivity 3 ng/L (</=34) White Blood Count 5.0 10^3/uL (4.4-10.8) Red Blood Count 4.32 10^6/uL (4.0-5.20) Hemoglobin 13.9 g/dL (12.2-16.2) Hematocrit 41.4 % (36.0-46.0) Mean Corpuscular Volume 95.8 fL (80.0-100.0) Mean Corpuscular Hemoglobin 32.1 pg (28.0-32.0) Mean Corpuscular Hemoglobin Concent 33.5 g/dL (32.0-36.0) Red Cell Distribution Width 13.7 % (11.8-14.3) Platelet Count 202 10^3/uL (140-450) Mean Platelet Volume 6.9 fL (6.9-10.8) Neutrophils (%) (Auto) 57.2 % (37.0-80.0) Lymphocytes (%) (Auto) 29.2 % (10.0-50.0) Monocytes (%) (Auto) 7.9 % (0.0-12.0) Eosinophils (%) (Auto) 5.0 % (0.0-7.0) Basophils (%) (Auto) 0.7 % (0.0-2.0) Neutrophils # (Auto) 2.9 10 ^3/uL (1.6-8.6) Lymphocytes # (Auto) 1.5 10 ^3/uL (0.4-5.4) Monocytes # (Auto) 0.4 10 ^3/uL (0-1.3) Eosinophils # (Auto) 0.3 10 ^3/uL (0-0.8) Basophils # (Auto) 0 10 ^3/uL (0-0.2) Nucleated Red Blood Cells 0.1 % Sodium Level 143 mmol/L (136-145) Potassium Level 3.9 mmol/L (3.5-5.1) Chloride Level 112 mmol/L (98-107) Carbon Dioxide Level 22 mmol/L (20-31) Anion Gap 9 (5-15) Blood Urea Nitrogen 9 mg/dL (9-23) Creatinine 0.50 mg/dL (0.550-1.02) Glomerular Filtration Rate Calc 98 mL/min (>90) BUN/Creatinine Ratio 18.0 (10.0-20.0) Serum Glucose 85 mg/dL (74-106) Calcium Level 9.0 mg/dL (8.7-10.4) Total Bilirubin 0.4 mg/dL (0.2-1.0) Aspartate Amino Transferase (AST) 14 U/L (13-40) Alanine Aminotransferase (ALT) 12 U/L (7-40) Alkaline Phosphatase 128 U/L (46-116) Total Protein 5.6 g/dL (5.7-8.2) Albumin 3.9 g/dL (3.2-4.8) Other Laboratory Tests 10/05/24 05:29 Brief Hx & Hospital Course: Final diagnoses: Chronic low back pain due to chronic compression fractures of the lumbar and thoracic spines Anxiety Syncope Tachycardia Chest pain, atypical, due to musculoskeletal pain Fever and chills, subjective who, no infection h/o CHF COPD s/p Fall Back pain Urinary incontinence h/o CAD/RI Weakness Mild protein malnutrition 74-year-old female who was admitted for chest pain, back pain, anxiety, subjective fever and chills The workup here was negative including a UA and a chest x-ray with no infection Her heart rate and blood pressure go little high when she is having anxiety or panic attacks Imaging studies include a CT scan of the head and chest x-ray and carotid Doppler which were normal CT scan of the lumbar spine showed old compression fracture of the L3 and severe spinal canal stenosis at the L4-L5 level and advanced degenerative disc disease CT scan of the thoracic spine showed a for compression fraction of the T8 She is complaining of back pain, she takes Tylenol for it at home which she says is effective, she lives with a roommate The plan is to remove the [place] catheter and discharge the patient home today for outpatient follow up No new medications Continue Tylenol as needed Condition at Discharge: Stable Final Diagnosis/Problems List Chronic low back pain due to chronic compression fractures of the lumbar and thoracic spines Anxiety Syncope Tachycardia Chest pain, atypical, due to musculoskeletal pain Fever and chills, subjective who, no infection h/o CHF COPD s/p Fall Back pain Urinary incontinence h/o CAD/RI Weakness Mild protein malnutrition Anxiety Discharge Disposition: Home SNF Discharge Will this Physician continue t: No Discharge Instruct/Medications Diet: Cardiac 2g Na,low cholest Activity: No Restrictions, As Tolerated Follow Up/Referral: PCP as soon as possible Medications: No new medications Discharge Statement: "Patient was advised to return to the ER or call 911 if any headaches, dizziness, shortness of breath, chest pain, abdominal pain, bleeding, fevers, or worsening of medical condition. Patient was counseled about treatment plan, medications, possible side effects, patientverbalized understanding. All questions were answered to the best of my ability. This discharge took greater then 30 minutes in planning, reviewing documentation, counseling the patient, and discussing with other team members." ASSESSMENT ASSESSMENT Assessment Chronic low back pain due to chronic compression fractures of the lumbar and thoracic spines Anxiety Syncope Tachycardia Chest pain, atypical, due to musculoskeletal pain Fever and chills, subjective who, no infection h/o CHF COPD s/p Fall Back pain Urinary incontinence h/o CAD/RI Weakness Mild protein malnutrition Anxiety Date of Service: Oct 06, 2024 Billing Provider: ANA KNAPP MD Common Visit Codes: NOT BILLABLE ANA KNAPP MD Oct 06, 2024 11:16
== END 2024-10-06 16:03 | disposition home or self-care (01) | DRG 313 ==
LOC: EDBD 04:28 → ER 04:28 → TELE 11:15 → UNDODISIN 18:34 → TELE-WESTW 18:34
PROVIDERS: ADMIT Internal Medicine Geriatric Medicine; ATTEND Internal Medicine Geriatric Medicine
DX: R07.89 Other chest pain (principal); Z68.1 Body mass index [BMI] 19.9 or less, adult; E44.1 Mild protein-calorie malnutrition; M48.56XA Collapsed vertebra, not elsewhere classified, lumbar region, initial encounter for fracture; M48.54XA Collapsed vertebra, not elsewhere classified, thoracic region, initial encounter for fracture; I25.10 Atherosclerotic heart disease of native coronary artery without angina pectoris; G89.29 Other chronic pain; F41.9 Anxiety disorder, unspecified; J44.9 Chronic obstructive pulmonary disease, unspecified; F17.210 Nicotine dependence, cigarettes, uncomplicated; I50.9 Heart failure, unspecified; R32 Unspecified urinary incontinence; Z79.899 Other long term (current) drug therapy; Z88.0 Allergy status to penicillin; W18.39XA Other fall on same level, initial encounter; Y93.89 Activity, other specified; Y92.89 Other specified places as the place of occurrence of the external cause; Y99.8 Other external cause status
CPT/HCPCS: 36415; 70450; 71045; 72128; 72131; 80053; 81001; 84484; 85025; 93005; 93306; 93886; 97163; 99291; G0378; J2405